=== PATIENT | male | born 1955 | race Two or more races ===

== ENCOUNTER 2022-11-18 22:18 | Emergency (ER) | payer OTHER ==
[~2022-11-18] VITALS: Ht 165.1 cm; Wt 72.6 kg
== END 2022-11-19 01:56 | disposition home or self-care (01) ==
LOC: ER 22:18
DX: R13.10 Dysphagia, unspecified (principal); I69.993 Ataxia following unspecified cerebrovascular disease; R53.81 Other malaise; I10 Essential (primary) hypertension; E13.65 Other specified diabetes mellitus with hyperglycemia; Z20.822 Contact with and (suspected) exposure to COVID-19; Z79.84 Long term (current) use of oral hypoglycemic drugs

== ENCOUNTER → 2022-11-18 | Emergency (ER) | payer OTHER ==
[~2022-11-18] VITALS: Ht 165.1 cm; Wt 72.6 kg
[~2022-11-18] MED LIST: ADULT LOW DOSE81 M1; DIALYVITE 8001 EAC1; HYDRODIURIL12.5 MG PO; PEPCID AC20 MG PO; TOPROL XL25 M1 PO; VENLAFAXINE H37.5 M2 PO
== END | disposition home or self-care (01) ==
LOC: ER 14:57
DX: E11.65 Type 2 diabetes mellitus with hyperglycemia (principal); Z79.84 Long term (current) use of oral hypoglycemic drugs; R53.1 Weakness; I69.993 Ataxia following unspecified cerebrovascular disease; I10 Essential (primary) hypertension